=== PATIENT | male | born 1995 | race Caucasian/White ===

== ENCOUNTER 2018-07-20 19:24 | Emergency (ER) | payer SELFPAY ==
[~2018-07-20] VITALS: Ht 175.3 cm; Wt 66.0 kg
[2018-07-20] MEDS ORDERED: LIDOCAINE HCL/PF 1% 10 MG/ML 5ML VIAL IJ ONE (20:45)
[2018-07-20] MEDS ORDERED: LIDOCAINE 1%/EPI 1:100,000 10 ML VIAL IJ ONE (20:45)
[2018-07-20 21:31] VITALS: BP 139/83
== END 2018-07-21 07:23 | disposition home or self-care (01) ==
LOC: ER 07-21 07:17
DX: S81.811A Laceration without foreign body, right lower leg, initial encounter (principal); V00.131A Fall from skateboard, initial encounter; Y93.51 Activity, roller skating (inline) and skateboarding; Y92.89 Other specified places as the place of occurrence of the external cause; R03.0 Elevated blood-pressure reading, without diagnosis of hypertension
CPT/HCPCS: 12002; 99283; J3490; Z7610